=== PATIENT | male | born 1950 | race Caucasian/White ===

== ENCOUNTER 2016-11-21 14:19 | Emergency (ER) | payer OTHER, MEDICARE ==
[~2016-11-21] VITALS: Ht 175.3 cm; Wt 100.0 kg
[~2016-11-21 14:19] MED LIST: ALEVE220 M2 PO; ASPIRIN81 M1 PO; ASPIRIN81 M2 PO; ATORVASTATIN CA40 MG PO; BENICAR40 MG PO; CENTRUM SILVER1 EAC3 PO; FISH OIL SOFTG1 EACH PO; FLEXERIL10 MG PO; LOPRESSOR25 MG PO; LORTAB 5-325 M1 EACH PO; MOTRIN600 MG PO; RANITIDINE HCL150 MG PO; SIMVASTATIN40 M1 PO
[2016-11-21] MEDS ORDERED: NORCO 5/3251 TABLET PO (15:52)
[2016-11-21 15:56] VITALS: BP 140/79
== END 2016-11-21 16:17 | disposition home or self-care (01) ==
LOC: EME 14:19
DX: S76.111A Strain of right quadriceps muscle, fascia and tendon, initial encounter (principal); W01.0XXA Fall on same level from slipping, tripping and stumbling without subsequent striking against object, initial encounter; E78.5 Hyperlipidemia, unspecified; I10 Essential (primary) hypertension; Z79.82 Long term (current) use of aspirin; Z91.030 Bee allergy status
CPT/HCPCS: 73564; 99281; 99284